=== PATIENT | female | born 1955 | race Caucasian/White ===

== ENCOUNTER 2023-10-27 11:34 | Emergency (ER) | payer MEDICARE, BC, SELFPAY ==
[2023-10-27] VITALS (20 sets, daily range): BP systolic 132–171; BP diastolic 70–102; PULSE 53–69; RESP 13–21; TEMP 36.6–36.8; O2SAT 94–100; BMI 24.7
--- NOTE | 2023-10-27 12:21 | XR_ITS ---
FINAL REPORT CLINICAL HISTORY: fall, right shoulder injury COMPARISON: None FINDINGS: RIGHT SHOULDER Three views demonstrate no acute fracture. Anterior dislocation is noted. The acromioclavicular joint is intact. The visualized joint spaces are normally aligned. The soft tissues are unremarkable. IMPRESSION: Anterior dislocation. No acute fracture. Reviewed, Interpreted and Dictated by Paul Joel MD Transcribed by Alba Rudolph Authenticated and [facility]
--- NOTE | 2023-10-27 12:21 | XR_ITS ---
FINAL REPORT CLINICAL HISTORY: fall, right shoulder pain COMPARISON: None FINDINGS: 2 views of the right humerus were obtained. Overlying artifact is noted. There is no definite acute fracture of the visualized portion of the humerus. The elbow joint space appears intact. There is no acute soft tissue abnormality. IMPRESSION: No definite acute process. Reviewed, Interpreted and Dictated by Paul Joel MD Transcribed by Alba Rudolph Authenticated and [facility]
--- NOTE | 2023-10-27 12:22 | PC.NURSE ---
orders for morphine and zofran given verbally from MD Lomeli. orders read back to MD and placed after verification
--- NOTE | 2023-10-27 12:22 | HMH.EDGENADL ---
Discharge Plan Disposition Patient Disposition: Home, Self-Care Prescriptions Prescriptions: New hydrocodone-acetaminophen 5-325 mg tablet 1 tab PO Q6H PRN (Reason: pain) 3 Days Qty: 12 0RF Referrals Follow up/Referrals: Buck Thao DO [Staff Physician] - See instructions Provider,Referral, [Primary Care Provider] - See instructions Activity Restrictions/Add. Instructions Additional Instructions/Restrictions: Please follow-up with Dr. Thao within 1 week where your shoulder immobilizer/sling until cleared for mobilization therapy with Dr. Thao. Clinical Impressions Clinical Impression: Anterior dislocation of right shoulder Instructions Patient Instructions: DI for Moderate Sedation Discharge ED Provider: Reuben Lomeli General Adult HPI General Chief complaint: PAIN Stated complaint: Fall possible dislocated right shoulder Time Seen by Provider: 10/27/23 12:15 Mode of Arrival: Wheelchair Source of Information: Patient Limitations: No Limitations Description of Symptoms (Recalled from ER Triage Doc. by RN): pt presents to ED with c/o dislocation of right shoulder. pt reports that she was carrying something, tripped over a root and fell to the ground. pain located only in that shoulder. PMS presents in limb. History of Present Illness HPI narrative: Is a 68-year-old female present today with right shoulder/upper arm injury after having mechanical fall and landing directly onto her right shoulder. Denies any neurovascular complaints including any difficulty with movement or sensation. She denies any medical problems in the past. No injuries elsewhere. Related Data Previous Rx's Medication Instructions Recorded hydrocodone 5 mg-acetaminophen 325 1 tab PO Q6H PRN pain 3 days #12 10/27/23 mg tablet tabs Allergies Allergy/AdvReac Type Severity Reaction Status Date / Time No Known Allergies Allergy Verified 10/27/23 11:49 [facility] Disclaimer: The information contained in this section may have been updated after the patient was seen, as this information can be updated by other users. Social History Smoking Status: Never smoker alcohol intake: never current occupational status: other Travel in the last 8 weeks: None ROS Obtained: Yes All systems reviewed & no additional complaints except as documented Physical Exam General General appearance: in distress (In severe pain) Respiratory Respiratory exam: Present normal lung sounds bilaterally Cardiovascular Cardiovascular exam: Present regular rate Extremities Exam Extremities exam: Present other (Right arm is abducted and internally rotated in a homemade sling she has significant pain and tenderness over the proximal humerus and right shoulder axillary median ulnar radial motor and sensory exam normal) Neurological Exam Neurological exam: Present alert and oriented X3 Medical Decision Making Fabricio Inquiry Pt receiving controlled substance: No Vital Signs: 10/27/23 11:36 10/27/23 12:01 10/27/23 13:15 Temperature 98.2 F Temperature Source Oral Pulse Rate 65 53 L Pulse Rate [Left Radial] 69 Respiratory Rate 16 13 Blood Pressure 136/99 H 142/79 H Blood Pressure [Right Arm] 150/100 H Blood Pressure Mean 111 98 Blood Pressure Mean [Right Arm] 116 02 Sat by Pulse Oximetry 98 99 95 Oxygen Delivery Method Room Air Oxygen Flow Rate (LPM) 10/27/23 13:30 10/27/23 14:00 10/27/23 14:15 Temperature 98.0 F Temperature Source Oral Pulse Rate 57 L 66 Pulse Rate [Left Radial] 69 Respiratory Rate 13 21 17 Blood Pressure 151/86 H 151/87 H Blood Pressure [Right Arm] 151/87 H Blood Pressure Mean 107 108 Blood Pressure Mean [Right Arm] 108 02 Sat by Pulse Oximetry 96 96 99 Oxygen Delivery Method Room Air Nasal Cannula Oxygen Flow Rate (LPM) 2 10/27/23 14:17 10/27/23 14:25 10/27/23 14:19 Temperature 98.0 F 98.0 F Temperature Source Oral Oral Pulse Rate 62 Pulse Rate [Left R
--- NOTE | 2023-10-27 14:22 | PC.NURSE ---
radiology called for bedside xray. Saturnino Oseguera Morgan at bedside for procedure
--- NOTE | 2023-10-27 14:26 | XR_ITS ---
FINAL REPORT CLINICAL HISTORY: post reduction COMPARISON: Earlier same day FINDINGS: RIGHT SHOULDER Three views demonstrate proper location of the shoulder postreduction. No fracture identified. The visualized joint spaces are normally aligned. The soft tissues are unremarkable. IMPRESSION: Proper position of the shoulder after reduction. Reviewed, Interpreted and Dictated by Paul Joel MD Transcribed by Alba Rudolph Authenticated and [facility]
== END 2023-10-27 15:25 | disposition home or self-care (01) ==
PROVIDERS: Emergency Provider Student in an Organized Health Care Education/Training Program
DX: S43.014A Anterior dislocation of right humerus, initial encounter (principal); W01.10XA Fall on same level from slipping, tripping and stumbling with subsequent striking against unspecified object, initial encounter
CPT/HCPCS: 99152; 73030; 73060; 96374; 96375; 99285; J2405